=== PATIENT | male | born 1980 | race Caucasian/White ===

== ENCOUNTER 2016-09-21 15:45 | Emergency (ER) | payer OTHER ==
[~2016-09-21] VITALS: Ht 190.5 cm; Wt 92.3 kg
[~2016-09-21 15:45] MED LIST: ACET65TA OR; LEXAPRO OR; NICO21DI4 TD; No Historical Meds; XANA0.5T OR
[2016-09-21] MEDS ORDERED: ONDANSETRON 4MG/2ML VIAL (J2405) IV ONE (16:15)
[2016-09-21] MEDS ORDERED: PANTOPRAZOLE 40MG INJ (PROTONIX) (C9113) IV ONE (16:15)
[2016-09-21] MEDS ORDERED: NS 1,000 ML IV ONE (16:15)
[2016-09-21] MEDS ORDERED: KETOROLAC 30 MG/ML VIAL (J1885) IV ONE (16:15)
[2016-09-21 16:41] LABS: BASO % 0.4 % (0.0-1.0); EOS # 0.2 K/mm3 (0.0-0.50); EOS % 1.7 % (0.0-3.0); LARGE UNSTAINED CELL # 0.1 K/mm3 (0.0-0.4); LARGE UNSTAINED CELL % 1.6 % (0.0-4.0); LYMPH % 22.7 % (24.0-44.0); MEAN CORPUSCULAR HGB CONC 35.7 g/dl (32.0-36.5); MEAN CORPUSCULAR VOLUME 95.2 fl (80.0-96.0); MONO # 0.5 K/mm3 (0.0-0.8); MONO % 6.1 % (0.0-5.0); NEUTROPHILS # 5.9 K/mm3 (1.8-7.7); NEUTROPHILS % 67.5 % (36.0-66.0); RED CELL DISTRIBUTION WIDTH 12.1 % (11.5-14.5); WHITE BLOOD COUNT 8.7 K/mm3 (4.0-10.0)
[2016-09-21 16:43] LABS: PLATELET COUNT, AUTOMATED 81 k/mm3 (150-450)
[2016-09-21 16:49] LABS: INR 0.94
--- NOTE | 2016-09-21 16:55 | REP ---
Clinical: Acute abdominal pain. Technique: Torres scale ultrasound using curved array transducer. Findings: The liver and pancreas are normal in contour, size, and echogenicity without focal hepatic or pancreatic lesions identified. The gallbladder is normal without gallstones, wall thickening or pericholecystic fluid. No biliary ductal dilatation is appreciated, and the common bile duct measures 4.0 mm diameter. The right kidney is normal in reniform shape without hydronephrosis and measures 11.0 x 5.8 x 5.0 cm. No ascites. Visualized portions of the abdominal aorta normal. Impression: Normal right upper quadrant and gallbladder abdominal ultrasound. Signed by Franky Mederos MD 09/21/2016 04:46 P
[2016-09-21 17:12] LABS: ALBUMIN 4.6 GM/DL (3.2-5.2); ALBUMIN/GLOBULIN RATIO 1.64 (1.00-1.93); ALKALINE PHOSPHATASE 63 U/L (45-117); ALT/SGPT 31 U/L (12-78); AMYLASE 71 U/L (25-115); ANION GAP 6 MEQ/L (8-16); AST/SGOT 19 U/L (15-37); BILIRUBIN,DIRECT 0.2 MG/DL (0.0-0.2); BILIRUBIN,TOTAL 0.8 MG/DL (0.2-1.0); BLOOD UREA NITROGEN 14 MG/DL (7-18); CALCIUM LEVEL 9.1 MG/DL (8.5-10.1); CARBON DIOXIDE LEVEL 29 MEQ/L (21-32); CHLORIDE LEVEL 104 MEQ/L (98-107); CREATININE FOR GFR 1.13 MG/DL (0.70-1.30); GLOMERULAR FILTRATION RATE > 60.0 (>60); GLUCOSE, FASTING 81 MG/DL (70-105); POTASSIUM SERUM 3.7 MEQ/L (3.5-5.1); SODIUM LEVEL 139 MEQ/L (136-145); TOTAL PROTEIN 7.4 GM/DL (6.4-8.2)
[2016-09-21] MEDS ORDERED: ZOFR4TAB3 PO (17:48)
[2016-09-21] MEDS ORDERED: NORCOTAB PO (17:48)
--- NOTE | 2016-09-21 17:49 | REP ---
Clinical: Acute abdominal pain. Technique: Upright view of the chest with supine and upright views of the abdomen and pelvis. Findings: Frontal upright view of the chest demonstrates no acute cardiopulmonary process or free air below the diaphragm to suspect pneumoperitoneum. Supine and upright views of the abdomen and pelvis demonstrate nonspecific bowel gas pattern without obstruction or perforation. No organomegaly. No abnormal calcifications. Skeletal structures normal for age. Impression: Nonspecific bowel gas pattern. Signed by Franky Mederos MD 09/21/2016 05:40 P
[2016-09-21 17:54] VITALS: BP 130/62
== END 2016-09-21 17:55 | disposition home or self-care (01) ==
LOC: M ED 15:45
DX: R10.9 Unspecified abdominal pain (principal); R11.2 Nausea with vomiting, unspecified; F17.210 Nicotine dependence, cigarettes, uncomplicated

== ENCOUNTER → 2016-10-22 | Outpatient (REF) | payer OTHER ==
[~2016-10-22] MED LIST changes: +NORCOTAB PO; +ZOFR4TAB3 PO
[2016-10-27 00:06] LABS: HSV TYPE I IgM AB <1:10 titer (<1:10); HSV TYPE II IgM ABY <1:10 titer (<1:10)
== END ==
LOC: M SFHCLERA 09:42
PROVIDERS: ATTEND Nurse Practitioner Family
DX: R30.0 Dysuria (principal)

== ENCOUNTER 2017-06-14 08:19 | Emergency (ER) | payer SELFPAY, OTHER ==
[2017-06-14] MEDS: KETOROLAC 30 MG/ML VIAL (J1885) IV (10:25)
[2017-06-14] MEDS: ONDANSETRON 4MG/2ML VIAL (J2405) IV (10:25)
[2017-06-14 10:38] LABS: BASO % 0.3 % (0.0-1.0); EOS # 0.1 10^3/uL (0.0-0.50); EOS % 1.3 % (0.0-3.0); HEMATOCRIT 42.9 % (42.0-52.0); HEMOGLOBIN 15.5 g/dl (14.0-18.0); IMMATURE GRANULOCYTE % 0.8 % (0-3.0); LYMPH # 1.4 10^3/uL (1.5-4.5); LYMPH % 22.1 % (24.0-44.0); MEAN CORPUSCULAR HEMOGLOBIN 32.6 pg (27.0-33.0); MEAN CORPUSCULAR HGB CONC 36.1 g/dl (32.0-36.5); MEAN CORPUSCULAR VOLUME 90.1 fl (80.0-96.0); MONO # 0.6 10^3/uL (0.0-0.8); MONO % 8.9 % (0.0-5.0); NEUTROPHILS # 4.2 10^3/uL (1.8-7.7); NEUTROPHILS % 66.6 % (36.0-66.0); RED BLOOD COUNT 4.76 10^6/uL (4.30-6.10); RED CELL DISTRIBUTION WIDTH 11.9 % (11.5-14.5); WHITE BLOOD COUNT 6.3 10^3/uL (4.0-10.0)
[2017-06-14 10:39] LABS: KETONE, URINE AUTO RFX NEGATIVE (NEGATIVE); LEUKOCYTE ESTERASE UR AUTO RFX NEGATIVE (NEGATIVE); NITRITE, URINE AUTO RFX NEGATIVE (NEGATIVE); RBC, URINE AUTO RFX 0 /HPF (0-3); SPECIFIC GRAVITY UR AUTO RFX 1.003 (1.002-1.035); SQUAM EPITHELIAL CELL UR AURFX 0 /HPF (0-6); WBC, URINE AUTO RFX 0 /HPF (0-3)
[2017-06-14 10:40] LABS: PLATELET COUNT, AUTOMATED 49 10^3/uL (150-450)
[2017-06-14 10:41] LABS: ADD MANUAL DIFFER NO; DIFF SLIDE NUMBER 183
[2017-06-14 10:44] LABS: IMMATURE PLATELET FRACTION % 6.7 % (0.0-10.9)
[2017-06-14 10:56] LABS: CONTROL LINE MONO INT CTR LINE PRESENT; MONO SCRN NEGATIVE (NEGATIVE)
[2017-06-14 11:01] LABS: ERYTHROCYTE SEDIMENTATION RATE 1 mm/hr (0-15)
[2017-06-14 11:02] LABS: ANION GAP 6 MEQ/L (8-16); BLOOD UREA NITROGEN 16 MG/DL (7-18); C REACTIVE PROTEIN QUANTITATIV < 0.30 MG/DL (0.00-0.30); CALCIUM LEVEL 8.8 MG/DL (8.5-10.1); CARBON DIOXIDE LEVEL 26 MEQ/L (21-32); CHLORIDE LEVEL 109 MEQ/L (98-107); CREATININE FOR GFR 0.98 MG/DL (0.70-1.30); GLOMERULAR FILTRATION RATE > 60.0 (>60); GLUCOSE, FASTING 94 MG/DL (70-100); POTASSIUM SERUM 4.4 MEQ/L (3.5-5.1); SODIUM LEVEL 141 MEQ/L (136-145)
[2017-06-14] MEDS ORDERED: ISOVUE-370 76% 100ML VIAL (Q9967) As Ordered (11:08)
== END 2017-06-14 12:41 | disposition home or self-care (01) ==
LOC: M ED 08:19
DX: D69.6 Thrombocytopenia, unspecified (principal); J45.909 Unspecified asthma, uncomplicated; Z98.890 Other specified postprocedural states; Z87.891 Personal history of nicotine dependence; Z83.79 Family history of other diseases of the digestive system
CPT/HCPCS: J2405

== ENCOUNTER 2020-03-13 10:12 | Emergency (ER) | payer MEDICAID, SELFPAY ==
[~2020-03-13] VITALS: Ht 188 cm; Wt 93.2 kg
[~2020-03-13 10:12] MED LIST changes: +HYDR-3715 PO; +LEXA1TAB OR; -LEXAPRO OR; -NORCOTAB PO; +ZOFR4TAB14 PO; -ZOFR4TAB3 PO
[2020-03-13 10:44] LABS: BASO % 0.3 % (0.0-1.0); EOS # 0.1 10^3/uL (0.0-0.5); HEMATOCRIT 43.3 % (42.0-52.0); HEMOGLOBIN 14.4 g/dl (13.5-17.5); LYMPH # 2.1 10^3/uL (1.5-5.0); LYMPH % 30.1 % (24.0-44.0); MEAN CORPUSCULAR HEMOGLOBIN 31.4 pg (27.0-33.0); MEAN CORPUSCULAR HGB CONC 33.3 g/dl (32.0-36.5); MEAN CORPUSCULAR VOLUME 94.5 fl (80.0-96.0); MONO # 0.6 10^3/uL (0.0-0.8); MONO % 8.4 % (0.0-5.0); NEUTROPHILS % 58.8 % (36.0-66.0); PLATELET COUNT, AUTOMATED 124 10^3/uL (150-450); RED BLOOD COUNT 4.58 10^6/uL (4.30-6.10); WHITE BLOOD COUNT 6.9 10^3/uL (4.0-10.0)
[2020-03-13] MEDS ORDERED: FAMOTIDINE INJ 20MG/2ML VIAL (S0028 PER 1) IVP ONE (10:45)
[2020-03-13] MEDS ORDERED: methylPREDNISolone 125MG 2ML VIAL IV ONE (10:45)
[2020-03-13 11:16] LABS: BLOOD UREA NITROGEN 12 MG/DL (7-18); CALCIUM LEVEL 8.9 MG/DL (8.5-10.1); CARBON DIOXIDE LEVEL 29 MEQ/L (21-32); CHLORIDE LEVEL 107 MEQ/L (98-107); CK-MB VALUE MASS 11.5 NG/ML (<3.6); CPK CREATINE PHOSPHOKINASE 742 U/L (39-308); GLOMERULAR FILTRATION RATE > 60.0 (>60); GLUCOSE, FASTING 107 MG/DL (70-100); MB/CK RELATIVE INDEX 1.55 (< OR =4); POTASSIUM SERUM 4.2 MEQ/L (3.5-5.1); SODIUM LEVEL 140 MEQ/L (136-145); TROPONIN I < 0.02 NG/ML (< 0.10)
--- NOTE | 2020-03-13 11:29 | REP ---
INDICATION: SOB COMPARISON: 02/10/2010 TECHNIQUE: Portable AP view of the chest FINDINGS: The mediastinum and cardiac silhouette are stable and within normal limits for portable technique. The lung benz are clear without acute consolidation, effusion, or pneumothorax. Skeletal structures are intact. IMPRESSION: No acute cardiopulmonary process appreciated. <Electronically signed by Franky Mederos > 03/13/20 [id number]
[2020-03-13] MEDS ORDERED: NS 1,000 ML IV ONE (11:30)
[2020-03-13 12:49] VITALS: BP 144/67
--- NOTE | 2020-03-14 07:36 | ECGEPIP ---
[facility] - ED Test Date: 2020-03-13 Pat Name: MARISSA OZUNA Department: Room: - Gender: Male Technical Assistant: stacey : 1980 Requested By: ODESSA Serra Order Number: [id number] Reading MD: Yanni Silva Measurements Intervals [place] Rate: 70 P: 78 DC: 140 QRS: 81 QRSD: 106 T: 50 QT: 403 QTc: 437 Interpretive Statements SINUS RHYTHM baseline artifact may affect interpretation No prior Electronically Signed on 03-14-2020 7:35:55 EST by Yanni Silva
== END 2020-03-13 12:51 | disposition home or self-care (01) ==
LOC: M ED 10:12
DX: T78.40XA Allergy, unspecified, initial encounter (principal); M19.90 Unspecified osteoarthritis, unspecified site; F17.200 Nicotine dependence, unspecified, uncomplicated
CPT/HCPCS: 71045; 80048; 82550; 82553; 85025; 93005; 93041; 94760; 96361; 96374; 96375; 99285; J2930

== ENCOUNTER → 2020-06-23 | Outpatient (CLI) | payer MEDICAID, OTHER ==
--- NOTE | 2020-06-24 09:07 | REPPI ---
INDICATION: POLYARTHROPATHY COMPARISON: None. TECHNIQUE: AP, lateral views of the right and left hand. FINDINGS: Right hand demonstrates old healed 5th metacarpal bone fracture. Osseous structures, joint spaces, and surrounding soft tissues are otherwise age-appropriate and normal. No significant osteoarthritic or inflammatory arthritic degenerative changes noted. Left hand osseous structures, joint spaces, and surrounding soft tissues are age-appropriate and normal. No significant osteoarthritic or inflammatory arthritic degenerative changes noted. IMPRESSION: 1. Old healed right 5th metacarpal bone fracture. 2. No significant osteoarthritic or inflammatory arthritic changes are appreciated. <Electronically signed by Franky Mederos > 06/24/20 0944
--- NOTE | 2020-06-24 09:07 | REPPI ---
INDICATION: RIB PAIN RIGHT SIDE COMPARISON: None. TECHNIQUE: Frontal view of the chest with multiple views of the right and left hemithorax. FINDINGS: Eight total views of the right and left hemithorax demonstrates no acute rib fracture/injury or pathology. IMPRESSION: Normal bilateral rib series. <Electronically signed by Franky Mederos > 06/24/20 0904
--- NOTE | 2020-06-24 10:11 | REPPI ---
INDICATION: CREPITUS OF LEFT KNEE COMPARISON: None. TECHNIQUE: AP and lateral views of the left knee. FINDINGS: Osseous structures are intact and there is no evidence for acute fracture. No significant prepatellar swelling or suprapatellar effusion. Lateral view cannot exclude early joint space calcification/osteoid matrix. IMPRESSION: Lateral view cannot exclude early joint space calcification/osteoid matrix. <Electronically signed by Franky Mederos > 06/24/20 0800
== END ==
LOC: M PLAIMG 14:23
PROVIDERS: ATTEND Physician Assistant
DX: M23.8X2 Other internal derangements of left knee (principal); M13.0 Polyarthritis, unspecified; R07.81 Pleurodynia

== ENCOUNTER → 2020-06-23 | Outpatient (REF) | payer OTHER ==
[2020-06-23 18:25] LABS: HEMATOCRIT 44.6 % (42.0-52.0); HEMOGLOBIN 15.4 g/dl (13.5-17.5); MEAN CORPUSCULAR HEMOGLOBIN 33.6 pg (27.0-33.0); MEAN CORPUSCULAR HGB CONC 34.5 g/dl (32.0-36.5); MEAN CORPUSCULAR VOLUME 97.4 fl (80.0-96.0); PLATELET COUNT, AUTOMATED 119 10^3/uL (150-450); RED BLOOD COUNT 4.58 10^6/uL (4.30-6.10); WHITE BLOOD COUNT 8.2 10^3/uL (4.0-10.0)
[2020-06-23 18:51] LABS: ERYTHROCYTE SEDIMENTATION RATE 1 mm/hr (0-15)
[2020-06-23 19:06] LABS: C REACTIVE PROTEIN QUANTITATIV < 0.30 MG/DL (0.00-0.30); CHOLESTEROL LEVEL 187 MG/DL (<200); CHOLESTEROL RISK RATIO 4.452 (<5); FREE T4 0.89 NG/DL (0.76-1.46); HDL CHOLESTEROL 42 MG/DL (>40); LDL CHOLESTEROL 107 MG/DL (<100); NON-HDL-C 145 MG/DL; RHEUMATOID FACTOR QUANT < 10.0 IU/ML (<15.0); THYROID STIMULATING HORMONE 0.812 uIU/ML (0.358-3.740); TRIGLYCERIDES LEVEL 189 MG/DL (<150)
[2020-06-23 19:31] LABS: HEMOGLOBIN A1c 5.1 %
[2020-06-26 00:06] LABS: ANTINUCLEAR ANTIBODIES DIRECT Negative (Negative); CYCLIC CITRULLINATED PEPTIDE 3 units (0-19)
== END ==
LOC: M SFHCPLAZ 14:29
PROVIDERS: ATTEND Physician Assistant
DX: M13.0 Polyarthritis, unspecified (principal); Z13.220 Encounter for screening for lipoid disorders; Z13.29 Encounter for screening for other suspected endocrine disorder; Z13.1 Encounter for screening for diabetes mellitus; Z00.00 Encounter for general adult medical examination without abnormal findings